=== PATIENT | female | born 1945 | race Caucasian/White ===

== ENCOUNTER 2016-10-22 09:54 | Day surgery (SDC) | payer OTHER ==
[~2016-10-22] VITALS: Ht 162.6 cm; Wt 77.2 kg
[2016-10-22 09:55] VITALS: BP 170/80; PULSE 80; RESP 20; TEMP 97.8; O2SAT 96
[2016-10-22] MEDS ORDERED: PLAV75TA29 PO (10:22)
[2016-10-22] MEDS ORDERED: ASPI325T PO (10:22)
[2016-10-22] MEDS ORDERED: METO50TA PO (10:22)
[2016-10-22] MEDS ORDERED: ATOR1TAB18 PO (10:22)
[2016-10-22] MEDS ORDERED: LIDOCAINE VISCOUS 2% SOLN 15 ML UDC PO ONE (11:15)
[2016-10-22] MEDS ORDERED: ALUMINUM/MAGNESIUM/SIMETH 30 ML CUP PO ONE (11:15)
--- NOTE | 2016-10-22 11:15 | PD ---
HPI Chief Complaint: Foreign Body Time Seen by Provider: 11:00 Travel History International Travel<30 days: No Contact w/Intl Traveler<30days: No Traveled to known affect area: No History of Present Illness HPI This is a 71-year-old female who presents for evaluation of esophageal foreign body sensation. She reports that 2 days ago she ate a TV dinner that had sufficient for lunch. She felt initially okay but then at 7 PM she ate a baked potato and when she began swallowing she felt a sharp pain in her throat with a sensation of a sharp foreign body when she swallows. She believes that she may have swallowed a bone from her fish lunch. She went to an outside emergency room yesterday, soft tissue neck x-ray reveals "nonspecific needlelike radiolucent structure seen superimposed over the proximal oropharyngeal airway but could represent genuine foreign body such as glass bone or wood fragment. Correlation is needed." The patient presents today because her symptoms have worsened which popped evaluation. She has been able to swallow since then. This morning at 8 AM she had some coffee. Denies any chest pain or shortness of breath, nausea or vomiting. She has no other complaints. PFSH Past Medical History Hx Anticoagulant Therapy: Yes Cardiovascular Problems: Yes High Cholesterol: Yes Chest Pain: Yes Diabetes: Yes (TYPE II ) Patient Takes Glucophage: No : 1 Para: 1 Ovarian Cysts: Yes Past Surgical History Abdominal Surgery: Yes (CYSTECTOMY 1972) Cardiac Surgery: Yes (STENTS X5) Social History Alcohol Use: Yes (OCC) Tobacco Use: Yes (PACK) Substance Use: No Allergies-Medications (Allergen,Severity, Reaction): Coded Allergies: Cipro (Verified Allergy, Intermediate, Nausea/Vomiting, 10/22/16) Reported Meds & Prescriptions Reported Meds & Active Scripts Active Protonix (Pantoprazole Sodium) 20 Mg Tab 20 Mg PO DAILY Reported Aspirin 325 Mg Tab 325 Mg PO DAILY Atorvastatin (Atorvastatin Calcium) 80 Mg Tab 80 Mg PO HS Plavix (Clopidogrel Bisulfate) 75 Mg Tab 75 Mg PO DAILY Metoprolol Tartrate 50 Mg Tab 50 Mg PO DAILY Review of Systems Except as stated in HPI: all other systems reviewed are Neg Physical Exam Narrative GENERAL: Pleasant well-developed well-nourished female in no acute distress resting comfortably in hospital bed answering questions appropriately. Vital signs reviewed. SKIN: Warm and dry. HEAD: Atraumatic. Normocephalic. EYES: Pupils equal and round. No scleral icterus. No injection or drainage. ENT: No nasal bleeding or discharge. Mucous membranes pink and moist. NECK: Trachea midline. No JVD. CARDIOVASCULAR: Regular rate and rhythm. No murmur appreciated. RESPIRATORY: No accessory muscle use. Clear to auscultation. Breath sounds equal bilaterally. No stridor, no drooling, no crackles or wheezing. GASTROINTESTINAL: Abdomen soft, non-tender, nondistended. Hepatic and splenic margins not palpable. MUSCULOSKELETAL: No obvious deformities. NEUROLOGICAL: Awake and alert. No obvious cranial nerve deficits. Motor grossly within normal limits. Normal speech. Data Data Last Documented VS Vital Signs Date Time Temp Pulse Resp B/P Pulse Ox O2 Delivery O2 Flow Rate FiO2 10/22/16 09:55 97.8 80 20 170/80 96 Room Air Orders Soft Tissue Neck (10/22/16 ) Al-Mag Hy-Si 40-40-4 Mg/Ml Liq (Mag-Al P (10/22/16 11:15) Lidocaine 2% Viscous (Xylocaine 2% Visco (10/22/16 11:15) Consult Gastroenterology (10/22/16 ) Consent (10/22/16 12:18) Iv Access Insert/Monitor (10/22/16 12:21) Complete Blood Count With Diff (10/22/16 12:21) Basic Metabolic Panel (Bmp) (10/22/16 12:21) Electrocardiogram (10/22/16 ) NPO (10/22/16 12:21) Panendo (10/22/16 ) Admit Order (Ed Use Only) (10/22/16 12:31) Labs Laboratory Tests Test 10/22/16 12:30 White Blood Count 9.0 TH/MM3 Red Blood Count 4.61 MIL/MM3 Hemoglobin 14.2 GM/DL Hematocrit 41.0 % Mean Corpuscular Volume 89.0 FL Mean Corpuscular Hemoglobin 30.8 PG Mean Corpuscular Hemoglobin 34.6 % Concent Red Cell Distribution Width 13.7 % Platelet Count 210 TH/MM3 Mean Platelet Volume 9.4 FL Neutrophils (%) (Auto) 47.8 % Lymphocytes (%) (Auto) 41.5 % Monocytes (%) (Auto) 8.4 % Eosinophils (%) (Auto) 1.7 % Basophils (%) (Auto) 0.6 % Neutrophils # (Auto) 4.3 TH/MM3 Lymphocytes # (Auto) 3.7 TH/MM3 Monocytes # (Auto) 0.8 TH/MM3 Eosinophils # (Auto) 0.2 TH/MM3 Basophils # (Auto) 0.1 TH/MM3 CBC Comment DIFF FINAL Differential Comment Sodium Level 136 MEQ/L Potassium Level 4.5 MEQ/L Chloride Level 99 MEQ/L Carbon Dioxide Level 30.7 MEQ/L Anion Gap 6 MEQ/L Blood Urea Nitrogen 9 MG/DL Creatinine 0.74 MG/DL Estimat Glomerular Filtration 77 ML/MIN Rate Random Glucose 283 MG/DL Calcium Level 9.5 MG/DL MDM Medical Decision Making Medical Screen Exam Complete: Yes Emergency Medical Condition: Yes Medical Record Reviewed: Yes Differential Diagnosis Esophageal foreign body, irritation of the esophagus, esophageal obstruction, esophageal stricture, pharyngitis Narrative Course 77-year-old female presents with worsening foreign body sensation, pain when swallowing for the past 2 days, believes that she may have swallowed a fishbone in her TV dinner after lunch. The patient was given GI cocktail with no improvement in her symptoms. Soft tissue x-ray performed today reveals no definite radiopaque foreign body however pacer calcifications projected over the prevertebral soft tissues. There is mild degenerative disc changes. I discussed with on-call [employer] service merchandiser Dr. Valentino would like the patient to remain npo, plans on endoscopy today. Discussed these recommendations with the patient is agreeable. The patient was returned from endoscopy. Endoscopy revealed a normal appearing esophagus, erythematous gastritis and gastric antrum, biopsy was performed. There is some due dental inflammation in the bulb and second portion of the duodenum. The gastric urologist recommends an antireflux regimen, follow up on biopsy results in the next 2 weeks, ENT evaluation. The patient was rechecked. She feels significantly improved. She still has slight discomfort in her throat when she swallows but she feels improved after the procedure. Therefore the patient will be discharged for outpatient follow-up with ENT, [employer] service merchandiser. She is being given a prescription for Protonix. Diagnosis Primary Impression: Sensation of foreign body in esophagus Admitting Information Admitting Physician Requests: Observation Referrals: Neftali Bal MD, Hassan MD Additional Instructions: Follow-up with [employer] service merchandiser Dr. Morataya in the next 2 weeks, his office will call you to set up an appointment. If they do not call in 2 weeks, call their office to make an appointment. Follow-up with an ENT specialist such as Dr. Bal in the next few days. Protonix as prescribed. Return for any acutely new or worsening symptoms, specifically return for any acute shortness of breath, inability to swallow. Med/Other Pt SpecificInfo: Prescription(s) given Scripts Pantoprazole (Protonix)20 Mg Tab20 Mg PO DAILY #30 TAB Ref 0 Prov:Fede Nation MD 10/22/16 Disposition: 01 DISCHARGE HOME Condition: Stable Mateus Waters October 22, 2016 11:15
--- NOTE | 2016-10-22 12:11 | RADRPT ---
EXAM DATE/TIME: 10/22/2016 11:28 [place] COMPARISON: No previous studies available for comparison. EXTERNAL COMPARISON : [facility] INDICATIONS : Patient states they have fish bone stuck in throat. MEDICAL HISTORY : None. SURGICAL HISTORY : None. ENCOUNTER: Initial ACUITY: 3 days PAIN SCORE: 3/10 LOCATION: Soft tissue neck FINDINGS: Two view examination of the soft tissues of the neck demonstrates the hypopharyngeal airway to have a grossly normal configuration. Degenerative disc changes are present at the C4-5 and C5-6 levels wit h disc space narrowing and mild hypertrophic change. There is mild osteopenia. There are mild vascula r calcifications in the left carotid artery which are projected over the prevertebral soft tissues on the lateral exam. The trachea is midline. No radiopaque foreign bodies are seen. CONCLUSION: 1. No definite radiopaque foreign body however basilar calcifications are projected over the preverte bral soft tissues. 2. Mild degenerative disc change. 3. Osteopenia and vascular calcifications. Romulo Moralez MD on October 22, 2016 at 12:06 Board Certified Radiologist. This report was verified electronically.
[2016-10-22 12:45] LABS: AUTOMATED NEUTROPHIL # 4.3 TH/MM3 (1.8-7.7); BASOPHIL # 0.1 TH/MM3 (0-0.2); BASOPHIL % 0.6 % (0.0-2.0); EOSINOPHIL # 0.2 TH/MM3 (0-0.4); EOSINOPHIL % 1.7 % (0.0-4.0); HEMO FLAGS DIFF FINAL; LYMPH % 41.5 % (9.0-44.0); LYMPHOCYTE # 3.7 TH/MM3 (1.0-4.8); MEAN CORPUSCULAR HEMOGLOBIN 30.8 PG (27.0-34.0); MEAN CORPUSCULAR HGB CONC 34.6 % (32.0-36.0); MONO % 8.4 % (0.0-8.0); NEUT % 47.8 % (16.0-70.0); PLATELET COUNT 210 TH/MM3 (150-450); RED BLOOD COUNT 4.61 MIL/MM3 (4.00-5.30); RED CELL DISTRIBUTION WIDTH 13.7 % (11.6-17.2)
[2016-10-22 13:07] LABS: BICARBONATE 30.7 MEQ/L (21.0-32.0); POTASSIUM 4.5 MEQ/L (3.5-5.1)
--- NOTE | 2016-10-22 14:01 | GIPROC ---
[facility] [address] [facility]. [facility], [address] EGD PROCEDURE REPORT EXAM DATE: 10/22/2016 PATIENT NAME: Peyton Watts MR #: [id number] BIRTHDATE: 1945 ATTENDING: Cris Morataya MD ORDER #: [id number] FOOD STAND MANAGER: Alejandrina Scanlon and Mo Wong STATUS: outpatient INDICATIONS: The patient is a 71 yr old female here for an EGD due to dysphagia and foreign body removal from esophagus PROCEDURE PERFORMED: EGD w/ biopsy MEDICATIONS: Per Anesthesia and None. TOPICAL ANESTHETIC: CONSENT: The patient understands the risks and benefits of the procedure and understands that these risks include, but are not limited to: sedation, allergic reaction, infection, perforation and/or bleeding. Alternative means of evaluation and treatment include, among others: physical exam, x-rays, and/or surgical intervention. The patient elects to proceed with this endoscopic procedure. medical equipment was checked for proper function. Hand hygiene and appropriate measures for infection prevention was taken. After the risks, benefits and alternatives of the procedure were thoroughly explained, Informed consent was verified, confirmed and timeout was successfully executed by the treatment team. The patient was anesthetized with topical anesthesia and the Validusax [id number] endoscope was introduced through the mouth and advanced to the second portion of the duodenum. Retroflexed views revealed a hiatal hernia The gastroscope was then slowly withdrawn and removed. ESOPHAGUS: The mucosa of the esophagus appeared normal. STOMACH: There was erythematous moderate gastritis in the gastric antrum. A biopsy was performed using cold forceps. Sample sent for histology. DUODENUM: Mild duodenal inflammation was found in the bulb and second portion of the duodenum. ADVERSE EVENTS: There were no complications. IMPRESSIONS: 1. The esophagus appeared normal 2. There was erythematous gastritis in the gastric antrum; biopsy was performed 3. Duodenal inflammation was found in the bulb and second portion of the duodenum 4. Retroflexed views revealed a hiatal hernia RECOMMENDATIONS: 1. Anti-reflux regimen 2. Await biopsy results. Biopsy results will not be ready for 7-10 days. If you don't hear from us in two weeks, call our office for biopsy results. 3. Return to ER for ENT evaluation PATIENT CONDITION: stable DISPOSITION: Home REPEAT EXAM: Return 1 year EGD pending biopsy results Cris Morataya MD eSigned: Cris Morataya MD 10/22/2016 2:01 PM cc: Peyton Rivas M.D. PATIENT NAME: MacPeyton MR#: [id number]
[2016-10-22 14:11] VITALS: TEMP 97.5
[2016-10-22 14:30] VITALS: BP 131/83; PULSE 76; RESP 23; O2SAT 95
--- NOTE | 2016-10-22 14:42 | MB ---
cc: MARISELA TEJADA M.D., LAURENCE H. M.D. DATE OF CONSULTATION: 10/22/2016 REASON FOR CONSULTATION: Esophageal foreign body with odynophagia and dysphagia. HISTORY: Ms. Watts is a 71-year-old lady who says about 2 days ago she was eating dinner consisting of fish, she thinks fish bone got stuck in her throat. Yesterday she went to the emergency room and [facility]. A plain x-ray over there suggested soft tissue in the neck. This suggested a foreign body in the neck. GI service was consulted over there who basically recommended an ENT evaluation. The patient said that she was discharged without an ear, nose, and throat evaluation and today she has worsening dysphagia and odynophagia and so she came to the [facility] Emergency Room. She seems fairly comfortable. She has no shortness of breath at this time. Just states that it hurts to swallow. An x-ray here does not show any foreign bodies. PAST MEDICAL HISTORY 1. Coronary artery disease 2. elevated cholesterol 3. diabetes. PAST SURGICAL HISTORY 1. Cystectomy 2. stent placement in the past 3. Esophagogastroduodenoscopy 6 years ago in [place] SOCIAL HISTORY The patient drinks occasional alcohol. The patient is a smoker. ALLERGIES CIPRO. MEDICATIONS On admission 1. Aspirin. 2. Plavix. 3. Atorvastatin. 4. Metoprolol. REVIEW OF SYSTEMS Currently the patient has some odynophagia but no other symptoms. PHYSICAL EXAMINATION: IN GENERAL: Physical examination reveals a well-nourished lady in no apparent distress. VITAL SIGNS: Vital signs: Stable. HEAD/NECK: The head and neck examination anicteric sclerae. CHEST: Bilateral air entry with rales. ABDOMEN: The abdomen is soft, nontender. No hepatosplenomegaly. Bowel sounds are present. CENTRAL NERVOUS SYSTEM: Exam is nonfocal. RECTUM: The rectal examination was deferred at this Time. LABS: labs reveal hemoglobin of 14.2. Chest x-ray of the neck is unremarkable. IMPRESSION Esophageal foreign body. RECOMMENDATIONS EGD with possible foreign body removal recommended for today. This will be done under general anesthesia. Leave n.p.o. at this time. Further recommendations to follow. Thank you for this referral. MD Nohemi Cohen /12:59 PM /2:18 PM
[2016-10-22] MEDS ORDERED: PANT20 PO (15:31)
[2016-10-22] MEDS ORDERED: PROPOFOL 200 MG/20 ML AMP IV ONE (15:37)
--- NOTE | 2016-10-22 21:49 | EKG ---
Date Performed: 10/22/2016 Time Performed: 12:57:44 PTAGE: 71 years EKG: Sinus rhythm WITH FIRST DEGREE AV BLOCK ABNORMAL ECG NO PREVIOUS TRACING DOCTOR: Laura Jimenez Interpretating Date/Time 10/22/2016 21:46:41
== END 2016-10-22 16:25 | disposition home or self-care (01) ==
LOC: NEPC 09:54 → NEDA 10:56 → NEPC 12:37 → NEDA 12:38 → HPAC 14:00 → NEPC 16:25
PROVIDERS: ATTEND Internal Medicine Gastroenterology
DX: K29.50 Unspecified chronic gastritis without bleeding (principal); K44.9 Diaphragmatic hernia without obstruction or gangrene; E11.9 Type 2 diabetes mellitus without complications; R13.10 Dysphagia, unspecified; I44.0 Atrioventricular block, first degree; I25.10 Atherosclerotic heart disease of native coronary artery without angina pectoris; F17.210 Nicotine dependence, cigarettes, uncomplicated; Z79.01 Long term (current) use of anticoagulants; Z79.82 Long term (current) use of aspirin
CPT/HCPCS: 70360; 80048; 85025; 88305; 88312; 93005